=== PATIENT | male | born 1950 | race Two or more races ===

== ENCOUNTER → 2016-09-28 | Outpatient (CLI) | payer MEDICARE, OTHER ==
--- NOTE | 2016-09-28 14:12 | RADRPT ---
PROCEDURE: XR bilateral knees. CLINICAL INDICATION: Knee pain TECHNIQUE: AP weightbearing, PA weightbearing, lateral weightbearing and sunrise views of each kne e are available for review. COMPARISON: None available FINDINGS: Right knee: There is mild to moderate osteoarthrosis involving the right medial tibial femoral compartment and m ild osteoarthrosis involving the patellofemoral compartment .This is associated with joint space erick rowing, subchondral sclerosis and osteophytosis. Left knee: There is moderate osteoarthrosis involving the left lateral tibial femoral compartment and patellof emoral compartment. This is associated with joint space narrowing, subchondral sclerosis and osteoph ytosis. There is a small suprapatellar joint effusion. There is otherwise normal mineralization, architecture and alignment. No fractures are identified. No osseous lesions are identified. The soft tissues are unremarkable. IMPRESSION: Mild to moderate osteoarthrosis involving the right medial tibial femoral compartment and mild osteo arthrosis involving the patellofemoral compartment. Moderate osteoarthrosis involving the left lateral tibial femoral compartment and patellofemoral com partment. Small left suprapatellar joint effusion RPTAT: [facility] .Chris Main MD, Date Time Electronically viewed and signed by .Chris Main MD, on 09/28/2016 14:12 .B/
== END | disposition home or self-care (01) ==
LOC: HKI 13:42
PROVIDERS: ATTEND Orthopaedic Surgery
DX: M17.0 Bilateral primary osteoarthritis of knee (principal); M25.561 Pain in right knee; M25.562 Pain in left knee
CPT/HCPCS: 73564; G0463